=== PATIENT | female | born 1990 | race Caucasian/White ===

== ENCOUNTER 2017-09-18 12:50 | Emergency (ER) | payer OTHER ==
[~2017-09-18] VITALS: Wt 90.7 kg
[~2017-09-18 12:50] MED LIST: ALBUTEROL0.09 MG/A2 INH; AUGMENTIN 875875 MG PO; BIRTH CONTROL1 EAC1 PO; CIPRO250 MG PO; Ciprofloxacin500 MG PO; FLOMAX0.4 MG PO; MEDROL DOSEPAK4 MG PO; MOTRIN800 MG PO; TRAMADOL HCL50 MG PO; VICODIN 5-3001 EACH PO; Zofran4 MG PO
== END 2017-09-18 13:36 | disposition home or self-care (01) ==
LOC: ED 12:50
DX: L50.9 Urticaria, unspecified (principal); Z79.899 Other long term (current) drug therapy

== ENCOUNTER 2023-05-28 17:54 | Emergency (ER) | payer BC, OTHER ==
[~2023-05-28] VITALS: Ht 165.1 cm; Wt 140.6 kg
[2023-05-28] MEDS ORDERED: Albuterol Sulf/Ipratropium 3 ML VIAL NEB ONE (18:10)
[2023-05-28] MEDS ORDERED: MAGNESIUM SULFATE 50 ML IV ONE (18:15)
[2023-05-28] MEDS ORDERED: methylPREDNISolone sod succ 125 MG VIAL IV ONE (18:15)
[2023-05-28] MEDS ORDERED: PREDNISONE20 M1 PO (20:11)
== END 2023-05-28 20:42 | disposition home or self-care (01) ==
LOC: ED 17:54
DX: J45.909 Unspecified asthma, uncomplicated (principal)